=== PATIENT | male | born 2005 | race Caucasian/White ===

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

== ENCOUNTER 2023-06-09 18:34 | Emergency (ER) | payer OTHER, BC, SELFPAY ==
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
--- NOTE | 2023-06-09 18:37 | ED.UPPEXIN ---
HPI - Extremity Injury (Upper) General Chief Complaint: Extremity Injury, Upper Stated Complaint: left hand pain Time Seen by Provider: 06/09/23 18:37 Source: patient Mode of arrival: ambulatory Limitations: no limitations History of Present Illness HPI narrative: Patient is a 17-year-old male who presents with left palm pain for 1 week after lifting up Pallet at work and feeling a pop in hand. Patient reports immediate swelling and tenderness to area that has only slightly improved. Has not taken anything for pain. Denies any numbness, tingling or weakness to hand. Related Data Home Medications Medication Instructions Recorded Confirmed No Home Medications 12/01/22 06/09/23 Allergies Allergy/AdvReac Type Severity Reaction Status Date / Time No Known Allergies Allergy Verified 06/09/23 18:38 Review of Systems Review of Systems: All systems reviewed & are unremarkable except as noted in HPI and below Constitutional: Constitutional: Denies body ache(s), Denies chills, Denies fatigue, Denies fever(s), Denies headache(s), Denies malaise and Denies weakness Eyes: Eyes: Denies blurry vision, Denies irritation and Denies loss of vision ENT: Denies otalgia, Denies headache(s), Denies nasal discharge, Denies sinus pain and Denies sore throat Cardiovascular: Cardiovascular: Denies chest pain, Denies irregular heart rhythm and Denies dyspnea Respiratory: Respiratory: Denies dyspnea Gastrointestinal: Gastrointestinal: Denies abdominal pain, Denies melena, Denies hematochezia, Denies diarrhea, Denies nausea and Denies vomiting Musculoskeletal: Musculoskeletal: Denies back pain, Denies myalgias, Reports arthralgias and Reports joint swelling Integumentary/Breasts: Skin/Breast: Denies pruritus and Denies rash Neurologic: Denies headache(s), Denies loss of vision and Denies weakness Psychiatric: Psychiatric: Reports no additional psychiatric complaints Endocrine: Endocrine: Denies fatigue PMFSH Past Medical History Medical History Encounter to establish care Testicle swelling Social History Social History Smoking status: Never smoker Alcohol intake: never Substance use: current Substance use type: marijuana Comments At time of signature, agree with nursing past medical, surgical, social and family history. There is no relevant family history pertinent to the presenting complaint. Exam Const: General: cooperative, healthy appearing, comfortable, no acute distress and well nourished Nutritional Appearance: well nourished Orientation/consciousness: patient oriented x3 Limitations: no limitations HENMT: Head: normal to inspection, normocephalic and atraumatic Ears: hearing grossly normal bilaterally and external ears normal Face/Nose/Sinus: Normal external nose present, normal facial exam and face symmetric Face and sinus: normal facial exam and face symmetric Mouth: Yes lip normal Eyes: General: appearance normal, both eyes and all related structures Alignment and Position: alignment normal and position normal Periorbital: periorbital findings normal Eyelids: eyelids normal Pupils: Equal, round and reactive pupils present EOM: EOMs intact bilaterally Neck: Neck: normal visual inspection, full ROM and supple Chest: Chest palpation & inspection: normal inspection of the chest Resp: Effort & Inspection: normal respiratory effort and able to speak in complete sentences Auscultation: clear to auscultation bilaterally Cardio: Rate: regular rate Rhythm: regular rhythm Heart sounds: S1 normal heart sound present and S2 normal heart sound present GI: Inspection: normal to inspection Skin: General skin exam: normal color and no rashes or lesions noted Neuro: General: patient oriented x3 and moves all extremities Cranial nerves: Yes Equal, round and reactive pupils present Speech: tomy
[2023-06-09 18:52] VITALS: BP 128/80; PULSE 84; RESP 16; TEMP 37.3; O2SAT 99
== END 2023-06-09 19:26 | disposition home or self-care (01) ==
PROVIDERS: Emergency Provider Nurse Practitioner Family
DX: S60.222A Contusion of left hand, initial encounter (principal); M79.81 Nontraumatic hematoma of soft tissue; X58.XXXA Exposure to other specified factors, initial encounter
CPT/HCPCS: 73130; 99213; G0463

== ENCOUNTER 2024-02-15 15:55 | Outpatient (CLI) | payer BC, OTHER, SELFPAY ==
--- NOTE | ~2024-02-15 | US_ITS ---
EXAMINATION: US scrotum doppler DATE: 02/15/2024 16:36 INDICATION: Right testicular pain TECHNIQUE: Testicular sonogram utilizing grayscale and Doppler. COMPARISON: None. FINDINGS: The right testis measures 4.0 x 3.6 x 1.9 cm. The left testis measures 3.4 x 2.7 x 1.8 cm. Symmetric normal grayscale appearance to both testes. There is normal vascular flow to both testes. 2-3 mm anec hoic right epididymal cyst. There is also a small right epididymal appendix. The right epididymis is otherwise normal with normal vascular flow. The left epididymis is normal with normal vascular flow. There is no varicocele or left hydrocele. Moderate-sized simple appearing anechoic right hydrocele. IMPRESSION: 1. Moderate-sized right hydrocele. 2. Likely incidental tiny right epididymal cyst and right epididymal appendix. Otherwise normal bilat eral testes and epididymides. Reviewed, dictated and finalized at location B. IMPRESSION: 1. Moderate-sized right hydrocele. 2. Likely incidental tiny right epididymal cyst and right epididymal appendix. Otherwise normal bilateral testes and epididymides.
== END 2024-02-15 15:56 | disposition home or self-care (01) ==
LOC: ANHIMG 15:58
PROVIDERS: PCP Family Medicine; Visit Provider Nurse Practitioner Family
DX: N43.3 Hydrocele, unspecified (principal); N50.811 Right testicular pain; N50.89 Other specified disorders of the male genital organs
CPT/HCPCS: 76870; 93976

== ENCOUNTER 2025-02-14 09:06 | Emergency (ER) | payer BC, OTHER, SELFPAY ==
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
[2025-02-14 09:16] VITALS: BP 116/63; PULSE 82; RESP 20; TEMP 37.1; O2SAT 100
[2025-02-14] MEDS: TETANUS,DIPHTHERIA,AC PERTUSSIS ADULT (0.5 ML) BOOSTRIX IM (09:40)
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
== END 2025-02-14 10:07 | disposition home or self-care (01) ==
PROVIDERS: PCP Family Medicine
DX: M25.561 Pain in right knee (principal); M25.531 Pain in right wrist; S50.812A Abrasion of left forearm, initial encounter; V86.06XA Driver of dirt bike or motor/cross bike injured in traffic accident, initial encounter; Z23 Encounter for immunization
CPT/HCPCS: 73110; 73564; 90471; 90715; 99214; G0463

== ENCOUNTER → 2025-05-12 11:13 | Outpatient (CLI) | payer BC, OTHER, SELFPAY ==
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
--- NOTE | ~2025-05-12 | XR_ITS ---
XR lumbar spine 2-3V Indication: M54.50 - Low back pain, unspecified Comparison: None Findings: The vertebral heights are intact. No fracture or subluxation. The disc heights are intact. Soft tissues unremarkable Impression: No acute abnormality. Reviewed, dictated and finalized at location P. ING AND BLENDING SUPERVISOR Impression: No acute abnormality.
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
--- NOTE | ~2025-05-12 | XR_ITS ---
XR thoracic spine 2V Indication: M54.6 - Pain in thoracic spine Comparison: None Findings: The vertebral heights are intact. No fracture or subluxation. The disc heights are intact. Soft tissues unremarkable Impression: No acute abnormality. Reviewed, dictated and finalized at location P. OMING ROOM INSPECTOR Impression: No acute abnormality.
== END ==
PROVIDERS: PCP Nurse Practitioner Family; Visit Provider Nurse Practitioner Family
DX: M54.50 Low back pain, unspecified (principal); M79.641 Pain in right hand; M54.6 Pain in thoracic spine; M79.642 Pain in left hand
CPT/HCPCS: 72070; 72100; 73120